=== PATIENT | female | born 1965 | race African-American/Black ===

== ENCOUNTER 2017-08-28 23:42 | Emergency (ER) | payer OTHER ==
--- NOTE | 2017-08-29 08:24 | RAD ---
LEFT WRIST 3 VIEWS: HISTORY: Left wrist pain. COMPARISON: None. FINDINGS: No acute fracture or malalignment. Subtle widening of the scapholunate interval. Mild degenerative disease of the thumb carpometacarpal joint. Mild volar soft tissue swelling. IMPRESSION: 1. Subtle widening of the scapholunate interval may be sequelae of prior injury to the scapholunate ligament. 2. 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 POS: [id number]
== END 2017-08-29 03:54 | disposition home or self-care (01) ==
LOC: ERS 23:42
DX: M25.532 Pain in left wrist (principal); I10 Essential (primary) hypertension; Z79.899 Other long term (current) drug therapy

== ENCOUNTER 2018-12-19 19:18 | Emergency (ER) | payer OTHER ==
[2018-12-19 19:45] LABS: #Basophils 0.1 thou/uL (0.0-0.2); #Eosinphils 0.3 thou/uL (0.0-0.7); #Lymphocytes 4.5 thou/uL (1.20-3.40); #Monocytes 0.8 thou/uL (0.11-0.59); #Neutrophils 6.7 thou/uL (1.40-6.50); %Basophils 1.1 % (0.0-1.0); %Eosinophils 2.3 % (0.0-10.0); %Lymphocytes 36.2 % (21.0-51.0); %Monocytes 6.4 % (0.0-10.0); Hemoglobin 12.7 g/dL (12.0-16.0); Mean Corpuscular HGB CONC 33.5 g/dL (32.0-36.0); Mean Corpuscular Hemoglobin 29.6 pg (27.0-31.0); Mean Corpuscular Volume 88.2 fL (78.0-98.0); Mean Platelet Volume 6.5 fL (7.4-10.4); Platelet Count 347 thou/uL (130-400); RBC Distribution Width 11.4 % (11.5-14.5); Red Blood Cell (RBC) Count 4.29 mill/uL (4.20-5.40); White Blood Cell (WBC) Count 12.4 thou/uL (4.8-10.8)
[2018-12-19] MEDS ORDERED: Ondansetron PF 4 MG/2 ML Vial ONE (19:49)
[2018-12-19 20:08] LABS: ALT (SGPT) 15 U/L (8-55); AST (SGOT) 14 U/L (5-34); Albumin 4.4 g/dL (3.5-5.0); Alkaline Phosphatase 72 U/L (40-110); Anion Gap 15 mmol/L (10-20); BUN (Urea Nitrogen) 19 mg/dL (9.8-20.1); Bilirubin, Total 0.2 mg/dL (0.2-1.2); Calc. Creatinine Clearance 0 mL/min (70-130); Calcium 9.3 mg/dL (7.8-10.44); Carbon Dioxide 26 mmol/L (22-29); Chloride 104 mmol/L (98-107); Estimated GFR-MDRD 52; Glucose 102 mg/dL (70-105); Potassium 3.3 mmol/L (3.5-5.1); Protein, Total 7.4 g/dL (6.0-8.3); Sodium 142 mmol/L (136-145)
--- NOTE | 2018-12-19 20:20 | CT ---
Exam: CT brain PROVIDED CLINICAL HISTORY: Headache COMPARISON: 02/05/2014 FINDINGS: The ventricular system is normal in size and morphology. No evidence for intracranial hemorrhage or mass effect. The extracranial soft tissues and osseous structures demonstrate no evidence for an acute abnormality. IMPRESSION: No evidence for intracranial hemorrhage or mass effect.
[2018-12-19] MEDS ORDERED: Potassium Chloride 20 MEQ TAB ONE (20:24)
[2018-12-19] MEDS ORDERED: Ketorolac Tromethamine 30 MG/ML VIAL ONE (20:24)
[2018-12-19] MEDS ORDERED: Acetaminophen 500 MG TAB ONE (20:24)
[2018-12-19 20:58] LABS: Bilirubin Negative (Negative); Blood, Urine Negative (Negative); Clarity Clear (Clear); Glucose, Urine (Dipstick) Normal (Negative); Leukocyte Negative Leu/uL (Negative); Nitrite Negative (Negative); Protein, Urine (Dipstick) Negative (Neg-Trace); Urobilinogen Normal mg/dL (Less than 2)
== END 2018-12-19 21:15 | disposition home or self-care (01) ==
LOC: ERS 19:18
DX: E87.6 Hypokalemia (principal); R42 Dizziness and giddiness; R51 Headache; I10 Essential (primary) hypertension; D64.9 Anemia, unspecified; Z79.899 Other long term (current) drug therapy
CPT/HCPCS: 70450; 80053; 81003; 84484; 85025; 94760; 96361; 96374; 96375; J1885; J2405

== ENCOUNTER 2021-09-07 20:02 | Emergency (ER) | payer OTHER ==
[2021-09-07] MEDS ORDERED: Ketorolac Tromethamine 30 MG/ML VIAL ONE (21:19)
== END 2021-09-07 22:29 | disposition home or self-care (01) ==
LOC: ERS 20:02
DX: S13.4XXA Sprain of ligaments of cervical spine, initial encounter (principal); D64.9 Anemia, unspecified; I10 Essential (primary) hypertension; Z79.899 Other long term (current) drug therapy; V49.40XA Driver injured in collision with unspecified motor vehicles in traffic accident, initial encounter
CPT/HCPCS: 72070; 72100; 72125; 96372; J1885

== ENCOUNTER 2023-03-06 13:44 | Emergency (ER) | payer OTHER ==
[2023-03-06 16:02] LABS: #Eosinphils 0.1 thou/uL (0.0-0.7); #Monocytes 0.4 thou/uL (0.11-0.59); %Basophils 0.4 % (0.0-1.0); %Eosinophils 0.6 % (0.0-10.0); %Lymphocytes 19.1 % (21.0-51.0); %Monocytes 4.6 % (0.0-10.0); %Neutrophils 75.1 % (42.0-75.0); Hematocrit 41.7 % (36.0-47.0); Hemoglobin 14.2 g/dL (12.0-16.0); Mean Corpuscular HGB CONC 34.1 g/dL (32.0-36.0); Mean Corpuscular Hemoglobin 29.8 pg (27.0-31.0); Mean Corpuscular Volume 87.4 fl (78.0-98.0); Mean Platelet Volume 8.5 fL (7.4-10.4); Platelet Count 382 10x3/uL (130-400); RBC Distribution Width 12.1 % (11.5-14.5); Red Blood Cell (RBC) Count 4.77 mill/uL (4.20-5.40); White Blood Cell (WBC) Count 9.3 10x3/uL (4.8-10.8)
[2023-03-06] MEDS ORDERED: Metoclopramide HCl 10 MG (2 mL) VIAL ONE (16:08)
[2023-03-06] MEDS ORDERED: diphenhydrAMINE 50 MG/ML VIAL ONE (16:08)
[2023-03-06 16:32] LABS: ALT (SGPT) 11 U/L (8-55); AST (SGOT) 13 U/L (5-34); Albumin 4.4 g/dL (3.5-5.0); Alkaline Phosphatase 74 U/L (40-110); Anion Gap 13 mmol/L (10-20); BUN (Urea Nitrogen) 12 mg/dL (9.8-20.1); Bilirubin, Total 0.5 mg/dL (0.2-1.2); Calc. Creatinine Clearance 0 mL/min (70-130); Calcium 9.6 mg/dL (7.8-10.44); Carbon Dioxide 25 mmol/L (22-29); Chloride 102 mmol/L (98-107); Estimated GFR 62; Globulin 3.1 g/dL (2.4-3.5); Glucose 79 mg/dL (70-105); Potassium 3.9 mmol/L (3.5-5.1); Protein, Total 7.5 g/dL (6.0-8.3); Sodium 136 mmol/L (136-145)
[2023-03-06 16:34] LABS: Troponin I Less than 0.010 ng/mL (< 0.028)
== END 2023-03-06 17:43 | disposition home or self-care (01) ==
LOC: ERS 13:44
DX: I10 Essential (primary) hypertension (principal); R51.9 Headache, unspecified; R29.700 NIHSS score 0; D64.9 Anemia, unspecified; Z79.899 Other long term (current) drug therapy
CPT/HCPCS: 36415; 70450; 80053; 84484; 85025; 93005; 96365; 96375; J1200; J2765

== ENCOUNTER 2025-02-07 22:50 | Emergency (ER) | payer SELFPAY ==
[2025-02-08] MEDS ORDERED: Dexamethasone 10 MG/ML VIAL ONE (00:33)
[2025-02-08] MEDS ORDERED: Benzonatate 100 MG CAP ONE (01:13)
== END 2025-02-08 01:17 | disposition home or self-care (01) ==
LOC: ERS 22:50
DX: J20.9 Acute bronchitis, unspecified (principal); I10 Essential (primary) hypertension
CPT/HCPCS: 71045; 87428; 94640; J1100